=== PATIENT | female | born 1980 | race Caucasian/White ===

== ENCOUNTER 2020-04-03 12:26 | Emergency (ER) | payer MEDICARE ==
[~2020-04-03 12:26] MED LIST: ECOTRIN81 MG PO; GLUCOPHAGE1000 MG PO; GLUCOTROL5 MG PO; HYDROCHLOROTHIA25 MG PO; IMDUR ER TAB 3030 MG PO; IMITREX50 MG PO; LOPRESSOR 25 MG25 MG PO; NORVASC2.5 MG PO; RANEXA500 MG PO; VRAYLAR PO; WELLBUTRIN SR150 M1 PO; ZOCOR10 MG PO; ZOLOFT50 MG PO
[2020-04-03 13:47] LABS: HEMOGLOBIN 12.8 gm/dl (12.3-15.3); RED BLOOD COUNT 4.46 M/UL (4.00-5.10); WHITE BLOOD COUNT 6.5 K/UL (4.5-11.0)
[2020-04-03 14:08] LABS: BUN/CREATININE RATIO 18 (0-10)
[2020-04-03] MEDS ORDERED: CEFUROXIME500 MG PO (16:34)
== END 2020-04-03 16:50 | disposition home or self-care (01) ==
LOC: ER1 12:26
DX: N12 Tubulo-interstitial nephritis, not specified as acute or chronic (principal); E11.9 Type 2 diabetes mellitus without complications; I10 Essential (primary) hypertension; Z88.8 Allergy status to other drugs, medicaments and biological substances; Z79.4 Long term (current) use of insulin
CPT/HCPCS: 80053; 81001; 85025; 87086; 96365; 96375; 99284; J0696; J1885; J3370